=== PATIENT | male | born 1985 | race African-American/Black ===

== ENCOUNTER 2017-01-14 16:40 | Emergency (ER) | payer OTHER ==
[~2017-01-14] VITALS: Ht 167.6 cm; Wt 83.0 kg
[2017-01-14 16:41] VITALS: BP 114/63
[2017-01-14] MEDS ORDERED: RANI15TA PO (16:54)
[2017-01-14] MEDS ORDERED: BAYE325T12 PO (16:54)
[2017-01-14] MEDS ORDERED: VALI5TAB PO (17:41)
[2017-01-14] MEDS ORDERED: NAPR500T PO (17:41)
[2017-01-14] MEDS ORDERED: KETOROLAC TROMETHAMINE 10 MG TAB PO ONE (17:45)
[2017-01-14] MEDS ORDERED: diazePAM 5 MG TAB PO ONE (17:45)
[2017-01-14] MEDS ORDERED: IBUP80TA PO (17:59)
== END 2017-01-14 18:09 | disposition home or self-care (01) ==
LOC: M ED 17:59
DX: M62.838 Other muscle spasm (principal); M54.5 Low back pain; F17.210 Nicotine dependence, cigarettes, uncomplicated; Z79.82 Long term (current) use of aspirin; Z79.899 Other long term (current) drug therapy